=== PATIENT | female | born 1985 | race African-American/Black ===

== ENCOUNTER 2025-08-13 11:54 | Emergency (ER) | payer SELFPAY ==
[~2025-08-13 11:54] MED LIST: Iopamidol 300 61% 100 ML VIAL FS ONE
[2025-08-13 12:32] LABS: #Basophils Less than 0.03 10x3/uL (0.0-0.2); #Eosinophils 0.06 10x3/uL (0.0-0.5); #Monocytes 0.84 10x3/uL (0.0-1.1); #Neutrophils 8.18 10x3/uL (1.5-8.4); %Basophils 0.2 % (0.0-2.0); %Eosinophils 0.5 % (0.0-6.0); %Lymphocytes 19.7 % (18.0-47.0); %Monocytes 7.4 % (0.0-10.0); %Neutrophils 71.9 % (40.0-75.0); Hematocrit 39.5 % (34.9-44.5); Hemoglobin 13.1 g/dL (12.0-15.5); Mean Corpuscular Hemoglobin 29.0 pg (27.0-33.0); Mean Corpuscular Volume 87.6 fL (81.6-98.3); Platelet Count 222 10x3/uL (150-450); Red Blood Cell (RBC) Count 4.51 10x6/uL (3.90-5.03); White Blood Cell (WBC) Count 11.37 10x3/uL (3.5-10.5)
[2025-08-13 12:47] LABS: ALT (SGPT) 14 U/L (Less than 34); AST (SGOT) 26 U/L (11-34); Albumin 4.1 g/dL (3.1-4.5); Alkaline Phosphatase 93 U/L (40-110); Anion Gap 11 mmol/L (10-20); BUN (Urea Nitrogen) 16 mg/dL (7.0-18.7); Bilirubin, Total 0.2 mg/dL (0.3-1.2); Calc. Creatinine Clearance 0 mL/min (70-130); Calcium 10.1 mg/dL (7.8-10.44); Carbon Dioxide 26 mmol/L (22-29); Chloride 105 mmol/L (98-107); Globulin 3.7 g/dL (2.4-3.5); Glucose 89 mg/dL (70-105); Lipase 23 U/L (8-78); Potassium 3.2 mmol/L (3.5-5.1); Sodium 139 mmol/L (136-145)
[2025-08-13 13:10] LABS: BHCG - Serum Negative (NEGATIVE); Pregs Control Background? CLEAR/WHITE (CLR/WHITE); Pregs Control Bar Appear? YES (CONTROL BAR)
[2025-08-13 13:19] LABS: Glucose, Urine (Dipstick) Normal (Negative); Leukocyte Negative (Negative); Protein, Urine (Dipstick) 15 mg/dl (Neg-Trace); Specific Gravity, Urine 1.015 (1.005-1.030)
[2025-08-13 13:53] LABS: Bacteria/HPF Rare-Few HPF (None Seen); CAUTI Indications for Culture Pelvic or flank pain; WBC/HPF 0-3 HPF (0-3); Yeast-Budding Rare HPF (None Seen)
[2025-08-13 13:54] LABS: Urine Culture Reflex No No
[2025-08-13] MEDS ORDERED: Ketorolac Tromethamine 30 MG (1 mL) VIAL ONE (15:08)
== END 2025-08-13 17:28 | disposition home or self-care (01) ==
LOC: CSHERS 11:54
DX: N83.202 Unspecified ovarian cyst, left side (principal); I10 Essential (primary) hypertension; F17.210 Nicotine dependence, cigarettes, uncomplicated; Z53.20 Procedure and treatment not carried out because of patient's decision for unspecified reasons
CPT/HCPCS: 36415; 74177; 76856; 80053; 81001; 83690; 84703; 85025; 87086; 96374; 96375; J1885; Q9967